=== PATIENT | male | born 1960 | race African-American/Black ===

== ENCOUNTER 2019-02-08 06:01 | Emergency (ER) | payer SELFPAY ==
[~2019-02-08] VITALS: Ht 182.9 cm; Wt 68.0 kg
[2019-02-08] MEDS ORDERED: IV NORMAL SALINE 1000ML BAG 1,000 ML IV ONE (06:30)
[2019-02-08 06:45] LABS: CLARITY,URINE TURBID; COLOR,URINE RED; NITRITE,URINE POSITIVE (NEG)
--- NOTE | 2019-02-08 06:58 | PHYS DOC ---
Past Medical History Past Medical History: CAD, Diabetes-Type II, Hypertension, Other Additional Past Medical Histor: cardiac stents x4, pancreatic insufficiency, rt lung mass Past Surgical History: Knee Replacement Additional Past Surgical Histo: right lung surgery to remove mass Additional Information: 15 cigs / day Additional Information: pt states he drinks 3 beers/ day Drug Use: None Adult General Chief Complaint Chief Complaint: PAIN ON URINATION HPI HPI 58-year-old male presents with painful urination and bloody urine. He states several days ago he was treated at another facility for heat exhaustion and had an in and out catheter placed. He states a few days later he noticed some difficulty urinating but it's now become more painful and more bloody. Last night he did have some fever up to 101. He denies any nausea or vomiting. He den ies back pain. He states he did take antipyretics at home with good effect[] Review of Systems Review of Systems Constitutional: Reports fever to 101 denies chills[] Eyes: Denies change in visual acuity, redness, or eye pain [] HENT: Denies nasal congestion or sore throat [] Respiratory: Denies cough or shortness of breath [] Cardiovascular: No additional information not addressed in HPI [] GI: Reports some suprapubic discomfort[] : Per history of present illness[] Musculoskeletal: Denies back pain or joint pain [] Integument: Denies rash or skin lesions [] Neurologic: Denies headache, focal weakness or sensory changes [] Endocrine: Denies polyuria or polydipsia [] All other systems were reviewed and found to be within normal limits, except as documented in this note. Current Medications Current Medications Current Medications Medications (Trade) Dose Ordered Sig/Salima Start Time Stop Time Status Last Admin Dose Admin Ceftriaxone Sodium (Rocephin) 1 gm 1X ONCE 02/08/19 07:00 02/08/19 07:02 DC 02/08/19 07:22 1 GM Potassium Chloride (Klor-Con) 40 meq 1X ONCE 02/08/19 08:00 02/08/19 08:01 DC 02/08/19 08:07 40 MEQ Sodium Chloride 1,000 ml @ 1,000 mls/hr 1X ONCE 02/08/19 06:30 02/08/19 07:29 DC 02/08/19 06:37 1,000 MLS/HR Allergies Allergies Allergies Coded Allergies Type Severity Reaction Last Updated Verified iodine Allergy Unknown 02/08/19 Yes Physical Exam Physical Exam Constitutional: Well developed, well nourished, mild distress, non-toxic appearance. [] HENT: Normocephalic, atraumatic, bilateral external ears normal, oropharynx moist, no oral exudates, nose normal. [] Eyes: PERRLA, EOMI, conjunctiva normal, no discharge. [] Neck: Normal range of motion, no tenderness, supple, no stridor. [] Cardiovascular:Heart rate regular rhythm, no murmur [] Lungs & Thorax: Bilateral breath sounds clear to auscultation [] Abdomen: Bowel sounds normal, soft, no tenderness, no masses, no pulsatile masses. [] Skin: Warm, dry, no erythema, no rash. [] Back: No tenderness, no CVA tenderness. [] Extremities: No tenderness, no cyanosis, no clubbing, ROM intact, no edema. [] Neurologic: Alert and oriented X 3, normal motor function, normal sensory function, no focal deficits noted. [] Psychologic: Affect normal, judgement normal, mood normal. [] Current Patient Data Vital Signs Vital Signs Date Time Temp Pulse Resp B/P (MAP) Pulse Ox O2 Delivery O2 Flow Rate FiO2 02/08/19 08:09 72 16 191/93 (125) 99 Room Air 02/08/19 06:17 97.8 97.8 Lab Values Laboratory Tests Test 02/08/19 06:05 02/08/19 07:15 Urine Collection Type Unknown Urine Color Red Urine Clarity Turbid Urine pH 5.0 Urine Specific [place] 1.025 Urine Protein mg/dL (NEG-TRACE) Urine Glucose (UA) mg/dL (NEG) Urine Ketones (Stick) mg/dL (NEG) Urine Blood Large (NEG) Urine Nitrite Positive (NEG) Urine Bilirubin (NEG) Urine Urobilinogen Dipstick mg/dL (0.2 mg/dL) Urine Leukocyte Esterase Large (NEG) Urine RBC Tntc /HPF (0-2) Urine WBC >40 /HPF (0-4) Urine Bacteria Many /HPF (0-FEW) White Blood Count 13.9 x10^3/uL (4.0-11.0) H Red Blood Count 3.59 x10^6/uL (4.30-5.70) L Hemoglobin 11.3 g/dL (13.0-17.5) L Hematocrit 34.5 % (39.0-53.0) L Mean Corpuscular Volume 96 fL (79-100) Mean Corpuscular Hemoglobin 32 pg (25-35) Mean Corpuscular Hemoglobin Concent 33 g/dL (31-37) Red Cell Distribution Width 14.0 % (11.5-14.5) Platelet Count 168 x10^3/uL (140-400) Neutrophils (%) (Auto) 80 % (31-73) H Lymphocytes (%) (Auto) 10 % (24-48) L Monocytes (%) (Auto) 9 % (0-9) Eosinophils (%) (Auto) 1 % (0-3) Basophils (%) (Auto) 0 % (0-3) Neutrophils # (Auto) 11.1 x10^3/uL (1.8-7.7) H Lymphocytes # (Auto) 1.4 x10^3/uL (1.0-4.8) Monocytes # (Auto) 1.3 x10^3/uL (0.0-1.1) H Eosinophils # (Auto) 0.2 x10^3/uL (0.0-0.7) Basophils # (Auto) 0.0 x10^3/uL (0.0-0.2) Prothrombin Time 13.5 SEC (11.7-14.0) Prothrombin Time INR 1.1 (0.8-1.1) Sodium Level 142 mmol/L (136-145) Potassium Level 2.9 mmol/L (3.5-5.1) *L Chloride Level 106 mmol/L (98-107) Carbon Dioxide Level 27 mmol/L (21-32) Anion Gap 9 (6-14) Blood Urea Nitrogen 10 mg/dL (8-26) Creatinine 0.8 mg/dL (0.7-1.3) Estimated GFR (Cockcroft-Gault) 121.0 BUN/Creatinine Ratio 13 (6-20) Glucose Level 218 mg/dL (70-99) H Calcium Level 8.0 mg/dL (8.5-10.1) L Total Bilirubin 0.5 mg/dL (0.2-1.0) Aspartate Amino Transferase (AST) 20 U/L (15-37) Alanine Aminotransferase (ALT) 37 U/L (16-63) Alkaline Phosphatase 67 U/L (46-116) Creatine Kinase 139 U/L (39-308) Total Protein 6.0 g/dL (6.4-8.2) L Albumin 2.7 g/dL (3.4-5.0) L Albumin/Globulin Ratio 0.8 (1.0-1.7) L Laboratory Tests 02/08/19 07:15 Laboratory Tests 02/08/19 07:15 EKG EKG [] Radiology/Procedures Radiology/Procedures [] Course & Med Decision Making Course & Med Decision Making Pertinent Labs and Imaging studies reviewed. (See chart for details) [ED course: Evaluation reveals a 58-year-old male with complaints consistent with a urinary tract infection. His urine does show evidence of urinary tract infection. He does have a slightly elevated white blood cell count. He is afeb rile here in the department. The patient was given 1 L of IV fluids and a broad- spectrum cephalosporin intravenously. After the IV fluids patient feels much better. I will go and start him on a fluoroquinolone as an outpatient.] Dragon Disclaimer Dragon Disclaimer This electronic medical record was generated, in whole or in part, using a voice recognition dictation system. Departure Departure Impression: Primary Impression: Complicated UTI (urinary tract infection) Disposition: 01 HOME, SELF-CARE Condition: STABLE Referrals: NO PCP (PCP) Patient Instructions: Urinary Tract Infection Additional Instructions: Drink plenty of fluids. Tylenol or Motrin for fever. It is very important that you take all of your antibiotics as prescribed. Follow with her primary care physician in 5-7 days. Return to the emergency department with any new or concerning symptoms such as intractable fever or any nausea or vomiting. Scripts Levofloxacin (LEVAQUIN) 750 Mg Tablet 1 TAB PO DAILY for complicated UTI, #10 TAB Prov: KARLEY ZABALA DO 02/08/19 KARLEY ZABALA DO Feb 08, 2019 06:58
[2019-02-08] MEDS ORDERED: cefTRIAXone IV Push 1 GM VIAL. IVP ONE (07:00)
[2019-02-08 07:42] LABS: BASO % 0 % (0-3); EOS # 0.2 x10^3/uL (0.0-0.7); EOS % 1 % (0-3); HEMATOCRIT 34.5 % (39.0-53.0); HEMOGLOBIN 11.3 g/dL (13.0-17.5); LYMPH # 1.4 x10^3/uL (1.0-4.8); LYMPH % 10 % (24-48); MEAN CORPUSCULAR HEMOGLOBIN 32 pg (25-35); MEAN CORPUSCULAR HGB CONC 33 g/dL (31-37); MEAN CORPUSCULAR VOLUME 96 fL (79-100); MONO # 1.3 x10^3/uL (0.0-1.1); MONO % 9 % (0-9); NEUT # 11.1 x10^3/uL (1.8-7.7); NEUT % 80 % (31-73); PLATELET COUNT 168 x10^3/uL (140-400); RED BLOOD COUNT 3.59 x10^6/uL (4.30-5.70); WHITE BLOOD COUNT 13.9 x10^3/uL (4.0-11.0)
[2019-02-08 07:49] LABS: BACTERIA,URINE MANY /HPF (0-FEW); RBC,URINE TNTC /HPF (0-2); WBC,URINE >40 /HPF (0-4)
[2019-02-08 07:52] LABS: ALBUMIN 2.7 g/dL (3.4-5.0); ALBUMIN/GLOBULIN RATIO 0.8 (1.0-1.7); CREATININE 0.8 mg/dL (0.7-1.3); TOTAL BILIRUBIN 0.5 mg/dL (0.2-1.0)
[2019-02-08 07:57] LABS: PROTHROMBIN TIME PATIENT 13.5 SEC (11.7-14.0)
[2019-02-08 07:58] LABS: POTASSIUM 2.9 mmol/L (3.5-5.1)
[2019-02-08] MEDS ORDERED: POTASSIUM CHLORIDE 20 MEQ TABLET.ER. PO ONE (08:00)
[2019-02-08 09:09] VITALS: BP 189/91
[2019-02-08] MEDS ORDERED: LEVO750T31 PO (09:11)
[2019-02-08] MEDS ORDERED: PHEN-318 PO (09:17)
[2019-02-08] MEDS ORDERED: PHENAZOPYRIDINE 200 MG TABLET. PO ONE (09:30)
== END 2019-02-08 09:31 | disposition home or self-care (01) ==
LOC: ER 06:01
DX: N39.0 Urinary tract infection, site not specified (principal); E11.9 Type 2 diabetes mellitus without complications; I25.10 Atherosclerotic heart disease of native coronary artery without angina pectoris; I10 Essential (primary) hypertension; F17.210 Nicotine dependence, cigarettes, uncomplicated; Z96.659 Presence of unspecified artificial knee joint; Z91.041 Radiographic dye allergy status
CPT/HCPCS: 36415; 80053; 81001; 82550; 85025; 85610; 87086; 96374; 99284; J0696; J7030

== ENCOUNTER 2020-06-08 00:56 | Emergency (ER) | payer SELFPAY ==
[~2020-06-08] VITALS: Ht 185.4 cm; Wt 59.5 kg
[~2020-06-08 00:56] MED LIST: LEVO750T31 PO; PHEN-318 PO
[2020-06-08 01:00] VITALS: BP 141/62
[2020-06-08] MEDS ORDERED: DEXAMETHASONE 4 MG TABLET PO ONE (01:15)
[2020-06-08] MEDS ORDERED: IBUPROFEN 400 MG TABLET. PO ONE (01:15)
--- NOTE | 2020-06-08 01:43 | PHYS DOC ---
Past Medical History Past Medical History: Heart Disease, Hypertension, [place] Additional Past Medical Histor: cardiac stents x4, pancreatic insufficiency, rt lung mass Past Surgical History: Other Additional Past Surgical Histo: CARDIAC STENTS Smoking Status: Current Every Day Smoker Alcohol Use: Occasionally Drug Use: None General Adult EDM: Chief Complaint: FEVER HPI: HPI: Patient is a 60 year old [f__sex] who presents with [] Review of Systems: Review of Systems: Constitutional: Denies fever or chills. [] Eyes: Denies change in visual acuity. [] HENT: Denies nasal congestion or sore throat. [] Respiratory: Denies cough or shortness of breath. [] Cardiovascular: Denies chest pain or edema. [] GI: Denies abdominal pain, nausea, vomiting, bloody stools or diarrhea. [] : Denies dysuria. [] Musculoskeletal: Denies back pain or joint pain. [] Integument: Denies rash. [] Neurologic: Denies headache, focal weakness or sensory changes. [] Endocrine: Denies polyuria or polydipsia. [] Lymphatic: Denies swollen glands. [] Psychiatric: Denies depression or anxiety. [] Heart Score: Risk Factors: Risk Factors: DM, Current or recent (<one month) smoker, HTN, HLP, family hist ory of CAD, obesity. Risk Scores: Score 0 - 3: 2.5% MACE over next 6 weeks - Discharge Home Score 4 - 6: 20.3% MACE over next 6 weeks - Admit for Clinical Observation Score 7 - 10: 72.7% MACE over next 6 weeks - Early Invasive Strategies Current Medications: Current Medications Medications (Trade) Dose Ordered Sig/Salima Start Time Stop Time Status Last Admin Dose Admin Dexamethasone (Decadron) 10 mg 1X ONCE 06/08/20 01:15 06/08/20 01:16 DC 06/08/20 01:19 10 MG Ibuprofen (Motrin) 400 mg 1X ONCE 06/08/20 01:15 06/08/20 01:16 DC 06/08/20 01:19 400 MG Allergies: Allergies: Allergies Coded Allergies Type Severity Reaction Last Updated Verified iodine Allergy Unknown 02/08/19 Yes Physical Exam: PE: Constitutional: Well developed, well nourished, no acute distress, non-toxic appearance. [] HENT: Normocephalic, atraumatic, bilateral external ears normal, oropharynx moist, no oral exudates, nose normal. [] Eyes: PERRLA, EOMI, conjunctiva normal, no discharge. [] Neck: Normal range of motion, no tenderness, supple, no stridor. [] Cardiovascular:Heart rate regular rhythm, no murmur [] Lungs & Thorax: Bilateral breath sounds clear to auscultation [] Abdomen: Bowel sounds normal, soft, no tenderness, no masses, no pulsatile masses. [] Skin: Warm, dry, no erythema, no rash. [] Back: No tenderness, no CVA tenderness. [] Extremities: No tenderness, no cyanosis, no clubbing, ROM intact, no edema. [] Neurologic: Alert and oriented X 3, normal motor function, normal sensory fun ction, no focal deficits noted. [] Psychologic: Affect normal, judgement normal, mood normal. [] Current Patient Data: Vital Signs: Vital Signs Date Time Temp Pulse Resp B/P (MAP) Pulse Ox O2 Delivery O2 Flow Rate FiO2 06/08/20 01:00 100.4 22 141/62 (88) 98 Room Air 100.4 EKG: EKG: [] Radiology/Procedures: Radiology/Procedures: [] Course & Med Decision Making: Course & Med Decision Making Pertinent Labs and Imaging studies reviewed. (See chart for details) [] Dragon Disclaimer: Dragon Disclaimer: This electronic medical record was generated, in whole or in part, using a voice recognition dictation system. Departure Departure Impression: Primary Impression: Suspected 2019 novel coronavirus infection Disposition: DC HOME SELF CARE/HOMELESS Condition: STABLE Referrals: NO PCP (PCP) Patient Instructions: Fever, Adult, [id number], Viral Syndrome Additional Instructions: You have been tested for or diagnosed with COVID-19. It is an infection caused by a new type of coronavirus. COVID-19 will cause cold-like or mild flu symptoms in most. It can cause more severe symptoms like problems breathing in some. There is no treatment for COVID-19. The body will clear the infection over time. Self-care will help to ease discomfort. Steps to Take: Self-Care Rest as needed. Healthy habits may help you feel better. Steps include: Choose healthy foods including fruits and vegetables. Drink water throughout the day. Get plenty of sleep each night. If you smoke, try to quit. It may ease breathing. Avoid alcohol. Keep Others Healthy The virus can spread to others. Droplets are released every time you sneeze or cough. The droplets can get into the mouth, nose, or eyes of people near you and lead to infection. To lower the chances of spreading COVID-19 to others: Stay at home until your doctor has said it is safe to leave. If you tested positive this will mean staying isolated until both of the following are true: At least 7 days have passed since the start of illness. You are free of fever for at least 72 hours without the use of medicine. During this time: - Avoid public areas, events, or transportation. Do not return to work or [employer] until your doctor has said it is safe to do so. - Call ahead if you need to go to a medical center. Let them know you may have COVID-19. It will help them guide you where to go. They may also ask you to wear a facemask when you come to the office. - If you call for emergency medical services, let them know you may have COVID- 19. While at home: - Try to avoid close contact with others. Stay about 6 feet away. - If possible, spend most of your time in a separate room from others. - Use a face mask if you will be in close contact with others such as sharing a room or vehicle. - Have someone wipe down common surfaces in the home. Use household antichecking iron worker every day on areas like doorknobs, counters, or sinks. - Cough or sneeze into a tissue. Throw the tissue away right after use. If a tissue is not available, cough or sneeze into your elbow. - Wash your hands often. Wash them after sneezing or coughing. Use soap and water and wash for at least 20 seconds. Alcohol based hand truck cleaner can be used if soap and water is not available. - Do not prepare food for others. Avoid sharing personal items like forks, spoons, or toothbrushes. - Avoid close contact with pets while you are sick. There is no evidence of the virus passing to pets. This is a safety step until more is known about this virus. Isolation can be frustrating. Social interaction can help. Keep in touch with friends and family through phone and tech options. You can still interact with others in your home, just keep a safe distance of about 6 feet. Follow-up: Your doctors office will check in with you to see if there are any changes in your health. You may be asked to keep track of symptoms to share with them. They will also let you know when you are clear to be in public again. Problems to Look Out For: Contact your doctor if your recovery is not going as you expect. Get emergency care if you have problems such as: - Trouble breathing - Nonstop chest pain or pressure - Changes in awareness, confusion, or problems waking - Lips or face have bluish color - Worsening of symptoms If you think you have an emergency, call for emergency medical services right away. As taken from [facility] LOREE OCHOA DO Jun 08, 2020 01:43
--- NOTE | 2020-06-08 02:34 | RAD ---
EXAMINATION: CHEST AP ONLY CLINICAL HISTORY: Fever/chills EXAM DATE/TIME: 06/08/2020 1:08 AM COMPARISON: None FINDINGS: Lines, Tubes, and Devices: None. Cardiomediastinal Silhouette: Normal heart size. Aortic atherosclerotic calcification. Lungs and Pleura: No evidence of focal airspace consolidation. Blunting of the right costophrenic angle and mild elevation of the lateral right hemidiaphragm suggestive of scarring and volume loss, though small pleural effusion is not excluded. Pulmonary vasculature unremarkable. Bones and Soft Tissues: No acute osseous abnormality. IMPRESSION: No definitive evidence of acute cardiopulmonary abnormality. Probable chronic changes in the peripheral right lung base versus small pleural effusion. Electronically signed by: Luis Albert DO (06/08/2020 2:32 AM) DENITA
== END 2020-06-08 01:53 | disposition home or self-care (01) ==
LOC: ER 00:56
DX: R50.9 Fever, unspecified (principal); Z20.828 Contact with and (suspected) exposure to other viral communicable diseases; I11.9 Hypertensive heart disease without heart failure; I25.2 Old myocardial infarction; F17.200 Nicotine dependence, unspecified, uncomplicated; Z95.5 Presence of coronary angioplasty implant and graft; Z88.8 Allergy status to other drugs, medicaments and biological substances
CPT/HCPCS: 71045; 99283

== ENCOUNTER 2020-07-23 21:20 | Emergency (ER) | payer SELFPAY ==
[~2020-07-23] VITALS: Ht 185.4 cm; Wt 56.8 kg
[~2020-07-23 21:20] MED LIST changes: +ACET325T9 PO; +AMLO-186 PO; +AMLO-187 PO; +ATOR40TA59 PO; +CIPR500T94 PO; +EMPA10TA PO; +INSU100V8 SQ; +LACT1CAP19 PO; +LISI-130 PO; +POTA20TA4 PO; +TAMS0.4C97 PO
--- NOTE | 2020-07-24 00:41 | PHYS DOC ---
Past Medical History Past Medical History: CAD, Heart Disease, Hypertension, [place] Additional Past Medical Histor: cardiac stents x4, pancreatic insufficiency, rt lung mass (LOREE CORDOVA APRN) Past Surgical History: Other Additional Past Surgical Histo: CARDIAC STENTS (LOREE CORDOVA APRN) Smoking Status: Current Every Day Smoker Additional Information: 10 cig/day Alcohol Use: Occasionally Drug Use: None (LOREE CORDOVA APRN) General Adult EDM: Chief Complaint: PAIN ON URINATION HPI: HPI: Patient is a 60 year old male comes emergency department complaining of urinating blood clots for the past 2 weeks. Patient states that he has had problems with urinating blood over the past year when he had a catheter placed and developed a urinary tract infection. Patient fears that he has developed another urinary tract infection. Patient denies any chest pains, shortness of breath, or abdominal pains. Patient denies any other physical complaints or physical symptoms. (LOREE CORDOVA APRN) Review of Systems: Review of Systems: 14 body systems of review of systems have been reviewed. See HPI for pertinent positives and negative responses, otherwise all other systems are negative, nonpertinent or noncontributory. (LOREE CORDOVA APRN) Heart Score: Risk Factors: Risk Factors: DM, Current or recent (<one month) smoker, HTN, HLP, family history of CAD, obesity. Risk Scores: Score 0 - 3: 2.5% MACE over next 6 weeks - Discharge Home Score 4 - 6: 20.3% MACE over next 6 weeks - Admit for Clinical Observation Score 7 - 10: 72.7% MACE over next 6 weeks - Early Invasive Strategies (LOREE CORDOVA APRN) Allergies: Allergies: Allergies Coded Allergies Type Severity Reaction Last Updated Verified iodine Allergy Unknown 02/08/19 Yes (LOREE CORDOVA APRN) Physical Exam: PE: Constitutional: Well developed, well nourished, no acute distress, non-toxic appearance. HENT: Normocephalic, atraumatic, bilateral external ears normal, oropharynx moist, no oral exudates, nose normal. Eyes: PERRLA, EOMI, conjunctiva normal, no discharge. Neck: Normal range of motion, no tenderness, supple, no stridor. Cardiovascular:Heart rate regular rhythm, no murmur Lungs & Thorax: Bilateral breath sounds clear to auscultation Abdomen: Bowel sounds normal, soft, no tenderness, no masses, no pulsatile masses. Skin: Warm, dry, no erythema, no rash. Back: No tenderness, no CVA tenderness. Extremities: No tenderness, no cyanosis, no clubbing, ROM intact, no edema. Neurologic: Alert and oriented X 3, normal motor function, normal sensory function, no focal deficits noted. Psychologic: Affect normal, judgement normal, mood normal. (LOREE CORDOVA APRN) Current Patient Data: Vital Signs: Vital Signs Date Time Temp Pulse Resp B/P (MAP) Pulse Ox O2 Delivery O2 Flow Rate FiO2 07/23/20 22:20 98.3 99 18 184/103 (130) 100 Room Air 98.3 (LOREE CORDOVA APRN) EKG: EKG: [] (LOREE CORDOVA APRN) Radiology/Procedures: Radiology/Procedures: [] (LOREE CORDOVA APRN) Course & Med Decision Making: Course & Med Decision Making Pertinent Labs and Imaging studies reviewed. (See chart for details) 60-year-old male reports emergency department complaining of urinating blood for the past 2 weeks, vital signs are stable. Physical exam was unremarkable. Patient's urine visual inspection was alvaro blood. Sent to lab. Related to this institution not having urology coverage. Discussed with patient where he would prefer to be transferred to that has urology specialty. Patient states he would like to try [facility]. Restart to [facility] transfer center and spoke with Dr. Ruvalcaba. Dr. Ruvalcaba has requested to review lab results prior to making decision for acceptance of transfer for urology specialty. Labs pending at this time. Discussed patient case and pending transfer with ED attending Dr. Clark who has agreed to assume patient care at this time. (LOREE CORDOVA APRN) Course & Med Decision Making Accepted care with patient at end of shift. Pending transfer to [facility] for urology consult for gross hematuria. Three-way Bower placed with bladder irrigation initiated in the emergency department. Patient will be transferred to [facility] via EMS (MIGUELANGEL CLARK MD) Jimmie Disclaimer: Dragon Disclaimer: This electronic medical record was generated, in whole or in part, using a voice recognition dictation system. (LOREE CORDOVA APRN) Departure Departure Impression: Primary Impression: Gross hematuria Disposition: 02 DC/TRF OTHER SHORT TERM HOS Condition: STABLE Referrals: NO PCP (PCP) LOREE CORDOVA APRN Jul 24, 2020 00:41 MIGUELANGEL CLARK MD Jul 24, 2020 04:54
[2020-07-24 01:00] LABS: CLARITY,URINE TURBID; COLOR,URINE RED
[2020-07-24 01:07] LABS: BACTERIA,URINE MODERATE /HPF (0-FEW); RBC,URINE TNTC /HPF (0-2)
[2020-07-24 01:31] LABS: BASO # 0.1 x10^3/uL (0.0-0.2); BASO % 1 % (0-3); EOS % 0 % (0-3); HEMATOCRIT 27.2 % (39.0-53.0); LYMPH # 0.9 x10^3/uL (1.0-4.8); LYMPH % 11 % (24-48); MEAN CORPUSCULAR HEMOGLOBIN 30 pg (25-35); MEAN CORPUSCULAR HGB CONC 33 g/dL (31-37); MEAN CORPUSCULAR VOLUME 90 fL (79-100); MONO # 0.4 x10^3/uL (0.0-1.1); MONO % 4 % (0-9); NEUT # 7.2 x10^3/uL (1.8-7.7); NEUT % 84 % (31-73); PLATELET COUNT 338 x10^3/uL (140-400); RED BLOOD COUNT 3.02 x10^6/uL (4.30-5.70); RED CELL DISTRIBUTION WIDTH 15.8 % (11.5-14.5); WHITE BLOOD COUNT 8.5 x10^3/uL (4.0-11.0)
[2020-07-24 01:39] LABS: CALCIUM 9.3 mg/dL (8.5-10.1); CREATININE 1.5 mg/dL (0.7-1.3); GFR 58.2; POTASSIUM 3.9 mmol/L (3.5-5.1)
[2020-07-24 01:40] LABS: PROTHROMBIN TIME PATIENT 13.6 SEC (11.7-14.0)
[2020-07-24 01:45] LABS: ALBUMIN 3.2 g/dL (3.4-5.0); ALBUMIN/GLOBULIN RATIO 0.7 (1.0-1.7); TOTAL BILIRUBIN 0.2 mg/dL (0.2-1.0); TOTAL PROTEIN 7.5 g/dL (6.4-8.2)
[2020-07-24] MEDS ORDERED: LIDOCAINE 2% JELLY 6ML IN APPLICATOR. ONE (02:26)
[2020-07-24 06:33] VITALS: BP 186/90
== END 2020-07-24 06:40 | disposition short-term general hospital (02) ==
LOC: ER 21:20
DX: R31.0 Gross hematuria (principal); Z20.822 Contact with and (suspected) exposure to COVID-19; I11.9 Hypertensive heart disease without heart failure; I25.2 Old myocardial infarction; F17.210 Nicotine dependence, cigarettes, uncomplicated; Z98.890 Other specified postprocedural states; Z91.041 Radiographic dye allergy status
CPT/HCPCS: 36415; 51702; 80053; 81001; 85025; 85610; 85730; 87086; 87426; 99285; C9803; U0003